=== PATIENT | female | born 1935 | race Caucasian/White ===

== ENCOUNTER 2019-10-19 10:23 | Emergency (ER) | payer BC, SELFPAY ==
--- NOTE | ~2019-10-19 | XR_ITS ---
XR ankle RT min 3V DATE: 10/19/2019 11:04 INDICATION: Right ankle pain following a fall. Laceration, swelling at dorsal aspect on the right TECHNIQUE: 4 views COMPARISON: None FINDINGS: No fracture or dislocation of the ankle or disruption of the ankle mortise is evident. No p eriosteal reaction or bone destruction. IMPRESSION: No fracture or dislocation detected Reviewed, dictated and finalized at location A.
--- NOTE | ~2019-10-19 | XR_ITS ---
XR foot RT min 3V DATE: 10/19/2019 11:04 INDICATION: Injury, pain TECHNIQUE: 4 views COMPARISON: None FINDINGS: No fracture or dislocation, periosteal reaction or bone destruction. IMPRESSION: No fracture or dislocation Reviewed, dictated and finalized at location A. IMPRESSION: No fracture or dislocation
[2019-10-19 10:28] VITALS: BP 213/82; PULSE 92; RESP 20; TEMP 36.8; O2SAT 96
--- NOTE | 2019-10-19 10:44 | ED.FALL ---
HPI - Fall General Chief Complaint: Fall Stated Complaint: FALL DOWN STEPS Time Seen by Provider: 10/19/19 10:29 History of Present Illness HPI Narrative: Patient is an 84-year-old female who presents ER with right foot pain. Patient was walking down some steps last night when she slipped and began to fall. She grabbed a handrail to brace herself. She still scraped her right foot and left calf on the stairs as she fell. She has been able to ambulate although more gingerly than typical especially on the right side. She did not strike her head or lose consciousness. She is not on blood thinners. Related Data Allergies Allergy/AdvReac Type Severity Reaction Status Date / Time Iodinated Contrast Media Allergy Unknown N/V WITH Verified 10/19/19 10:33 SHELLFISH iodine Allergy Unknown Unknown Verified 10/19/19 10:33 Penicillins Allergy Unknown Unknown Verified 10/19/19 10:33 shellfish derived Allergy Unknown N/V Verified 10/19/19 10:33 Review of Systems Review of Systems: All systems reviewed & are unremarkable except as noted in HPI and below Musculoskeletal: Comments: Right midfoot pain with bruising. Integumentary/Breasts: Comments: Abrasions to the left calf and the dorsal aspect of the right foot. Neurologic: Denies syncope, Denies focal weakness and Denies numbness PMFSH Social History Social History Smoking status: Never smoker Second hand tobacco smoke exposure: No Smoking end date: 06/30/15 Alcohol intake: current Substance use: never Substance use type: does not use Gender identity (if verbalized by the patient): Female Exam Narrative: Exam Narrative: GENERAL: Well-appearing, well-nourished, and in no acute distress. HEAD: Normocephalic, atraumatic. ENT: Mucous membranes moist. CHEST: Clear to auscultation. No respiratory distress. HEART: Regular rate and rhythm. Normal peripheral pulses. EXTREMITIES: Normal range of motion. No edema. Superficial abrasion dorsal aspect of the right foot extending to the langley. There is tenderness of the midfoot on the right mild discomfort along the first metatarsal as well. Ankle with mild lateral malleoli or discomfort without evidence of trauma. No tenderness left lower extremity. SKIN: Warm, dry, skin tear lateral left calf. NEURO: No focal deficits. Alert and oriented x3. Course Course Emergency Course: Will place in a postop shoe on the right side for comfort. Patient has a walker that she is ambulating with. Will give pain medication for home. Follow-up with PCP for further treatment evaluation. Vital Signs Vital signs: Vital Signs Temperature 98.3 F 10/19/19 10:28 Pulse Rate 92 10/19/19 10:28 Respiratory Rate 10/19/19 10:28 Blood Pressure 213/82 H 10/19/19 10:28 Pulse Oximetry 96 10/19/19 10:28 Temperature 98.3 F 10/19/19 10:28 Pulse Rate 68 10/19/19 11:38 Respiratory Rate 10/19/19 11:38 Blood Pressure 179/69 H 10/19/19 11:38 Pulse Oximetry 96 10/19/19 10:28 Discharge Plan Discharge Clinical Impression: Contusion of foot, right, Abrasion, multiple sites Patient Disposition: Home, Self-Care Condition: Stable Instructions: Contusion in Adults (ED) Additional Instructions: Return the ER if you have new injury, you have chest pain or shortness of breath, you cannot keep down food or water, you have additional concerns. Prescriptions: New hydrocodone-acetaminophen 5-325 mg tablet 1 tablet PO Q6H PRN (Reason: pain) Qty: 20 RF: 0 No Action levothyroxine [Levo-T] 50 mcg tablet 50 mcg PO .Alternating Qty: 45 RF: 1 levothyroxine [Levo-T] 75 mcg tablet 75 mcg PO .Alternating Qty: 45 RF: 1 Follow-up/Referrals: Pennie Turcios MD [Primary Care Provider] -
[2019-10-19 11:38] VITALS: BP 179/69; PULSE 68; RESP 20
== END 2019-10-19 12:30 | disposition home or self-care (01) ==
PROVIDERS: Emergency Provider Emergency Medicine; PCP Family Medicine
DX: S90.31XA Contusion of right foot, initial encounter (principal); S80.811A Abrasion, right lower leg, initial encounter; W10.9XXA Fall (on) (from) unspecified stairs and steps, initial encounter
CPT/HCPCS: 73610; 73630; 99283

== ENCOUNTER 2020-07-12 10:16 | Outpatient (CLI) | payer BC, SELFPAY ==
[2020-07-12 10:58] LABS: Basophils Percent Auto 0.7 % (0.2-1.2); Eosinophils Absolute Auto 0.1 K/mm3 (0-0.3); Eosinophils Percent Auto 0.9 % (0-4.4); Hematocrit 40.3 % (37.0-47.0); Hemoglobin 13.3 g/dL (12.0-15.0); Immature Granulocyte Absolute 0.02 K/mm3 (0.00-0.031); Immature Granulocyte Percent A 0.4 % (0-0.5); Lymphocytes Absolute Auto 1.28 K/mm3 (0.9-3.2); Lymphocytes Percent Auto 22.5 % (18.3-44.2); Mean Corpuscular Hemoglobin 29.2 pg (26-34); Mean Corpuscular Volume 88.6 fl (80-100); Mean Platelet Volume 10.3 fl (7.4-10.4); Monocytes Absolute Auto 0.5 K/mm3 (0.1-0.6); Monocytes Percent Auto 8.6 % (2.6-8.5); Neutrophils Absolute Auto 3.8 K/mm3 (1.3-6.7); Neutrophils Percent Auto 66.9 % (45.5-73.1); Platelet Count Result 263 k/mm3 (150-375); Red Blood Count 4.55 M/mm3 (4.2-5.4); Red Cell Distribution Width 14.6 % (11.5-14.5); White Blood Count 5.7 K/mm3 (4.5-10.0)
[2020-07-12 11:48] LABS: Free T4 Free Thyroxine 0.87 ng/mL (0.78-2.19)
[2020-07-12 11:49] LABS: Alanine Aminotransferase 19 U/L (4-35); Albumin Level 4.5 g/dL (3.5-5.1); Alkaline Phosphatase 59 U/L (38-126); Anion Gap 9 mmol/L (8-16); Aspartate Amino Transferase 31 U/L (14-36); Bilirubin,Total 0.3 mg/dL (0.2-1.3); Blood Urea Nitrogen 20 mg/dL (7-17); Calcium 9.8 mg/dL (8.4-10.2); Carbon Dioxide 26 mmol/L (22-30); Chloride 106 mmol/L (98-107); Estimated Glomerular Filt Rate > 60; Glucose 132 mg/dL (65-105); Potassium 4.5 mmol/L (3.4-5.0); Sodium 141 mmol/L (137-145)
[2020-07-12 12:19] LABS: Total Triiodothyronine (T3) 0.92 NG/ML (0.97-1.69)
[2020-07-15 13:01] LABS: Vitamin D 1,25 (OH)2 Total 70 pg/mL (18-72); Vitamin D2 1,25 (OH)2 <8 pg/mL; Vitamin D3 1,25 (OH)2 70 pg/mL
== END 2020-07-12 10:17 | disposition home or self-care (01) ==
LOC: ANHLAB 10:18
PROVIDERS: PCP Family Medicine; Visit Provider Family Medicine
DX: E03.9 Hypothyroidism, unspecified (principal); E55.9 Vitamin D deficiency, unspecified; I10 Essential (primary) hypertension
CPT/HCPCS: 36415; 80053; 82652; 84439; 84443; 84480; 85025

== ENCOUNTER 2021-02-11 16:37 | Inpatient (IN) | payer MEDICARE, BC, SELFPAY ==
[2021-02-11] VITALS (7 sets, daily range): BP systolic 107–143; BP diastolic 47–67; PULSE 106–111; RESP 18–38; TEMP 39.7; O2SAT 92–100
--- NOTE | ~2021-02-11 | XR_ITS ---
XR chest ET placement 02/12/2021 09:31 Indication: Dyspnea. Procedure: AP portable chest Comparison: Comparison to multiple prior studies sequentially, with oldest reviewed study dated 12/25. Findings: Developing patchy bilateral airspace disease, most confluent throughout the right lung, com patible with pneumonia versus asymmetric edema. Endotracheal tube tip 4.2 cm above the zak. NG tub e in the cysts. Impression: 1: Bilateral airspace disease, most likely pneumonia. Edema less favored. Reviewed, dictated and finalized at location A. Impression: 1: Bilateral airspace disease, most likely pneumonia. Edema less favored.
--- NOTE | ~2021-02-11 | CT_ITS ---
EXAMINATION: CT abdomen pelvis wo con DATE: 02/11/2021 19:49 INDICATION: Abdominal pain, vomiting and diarrhea TECHNIQUE: Computed tomography (CT) of the abdomen and pelvis was performed without intravenous contr ast. Automated exposure control and iterative reconstruction technique were employed. The dose-length product was 193.84 mGy-cm. COMPARISON: None FINDINGS: Minimal bibasilar atelectasis. Visualized inferior aspect of the heart is unremarkable. No pericardia l or pleural effusion. Liver, gallbladder, spleen, right adrenal gland and bilateral kidneys are norm al. There is some stranding in the left upper quadrant around the left adrenal gland, the margins of which are somewhat obscured. Stranding extends to the tail of the otherwise normal pancreas. Large am ount of stool at the rectum with smaller amounts throughout the more proximal colon. No dilated bowel to suggest obstruction. Bladder is normal. Multiple calcified uterine fibroids. No free intraperiton eal gas or fluid. No pathologically enlarged abdominal or pelvic lymphadenopathy. Mild lumbar levosco liosis with moderate to severe spondylosis. IMPRESSION: 1. Nonspecific mild stranding in the left upper quadrants centered around the left adrenal gland and along the tail of the pancreas. Differential would include and. Renal infection or congestion precedi ng adrenal hemorrhage or less likely acute interstitial pancreatitis. Correlate with amylase and lipa se levels. 2. Fibroid uterus. Reviewed, dictated and finalized at location A. IMPRESSION: 1. Nonspecific mild stranding in the left upper quadrants centered around the l eft adrenal gland and along the tail of the pancreas. Differential would includ e and. Renal infection or congestion preceding adrenal hemorrhage or less likel y acute interstitial pancreatitis. Correlate with amylase and lipase levels. 2. Fibroid uterus.
--- NOTE | ~2021-02-11 | XR_ITS ---
EXAMINATION: XR abdomen NG/feed tube insert DATE: 02/12/2021 09:31 INDICATION: Orogastric tube placement. TECHNIQUE: A supine view of the abdomen was obtained. COMPARISON: CT abdomen and pelvis 02/11/2021 FINDINGS: There is a dilated loop of small bowel in left abdomen. The colon is decompressed. The naso gastric tube tip is in the stomach. IMPRESSION: 1. Dilated small bowel in left abdomen, likely adynamic ileus. Reviewed, dictated and finalized at location B.
--- NOTE | ~2021-02-11 | CT_ITS ---
EXAMINATION: CT diagnostic chest wo con DATE: 02/12/2021 11:19 INDICATION: Blood with intubation. Respiratory distress. TECHNIQUE: Computed tomography (CT) of the chest was performed without intravenous contrast. The dose -length product was 157.08 mGy-cm. Automated exposure control and iterative reconstruction technique were employed. COMPARISON: Chest x-ray dated 02/12/2021 FINDINGS: Endotracheal tube tip 3.8 cm above the zak. Extensive patchy bilateral airspace consolid ation, most confluent in the right upper lobe, compatible with pneumonia. Probable small effusions. H eart size normal. NG tube in the stomach. There is gas in the IVC and left hepatic lobe, possibly fro m recent injection. IMPRESSION: 1. Extensive patchy bilateral airspace disease, consistent with pneumonia. 2: Possible small effusions. 3: Gas in the IVC of the upper abdomen and left hepatic lobe, possibly from recent injection. Reviewed, dictated and finalized at location A. IMPRESSION: 1. Extensive patchy bilateral airspace disease, consistent with pneumonia. 2: Possible small effusions. 3: Gas in the IVC of the upper abdomen and left hepatic lobe, possibly from rec ent injection.
--- NOTE | ~2021-02-11 | CT_ITS ---
EXAMINATION: CT brain wo con DATE: 02/12/2021 11:19 INDICATION: Slurred speech TECHNIQUE: Computed tomography (CT) of the head was performed without intravenous contrast. The dose- length product was 605.33 mGy-cm. Automated exposure control and iterative reconstruction technique w ere employed. COMPARISON: None FINDINGS: There is a left parietal subdural hemorrhage measuring approximately 6 mm. No significant m idline shift. No ventriculomegaly. Mild generalized atrophy. There are scattered mild periventricular and subcortical white matter changes, most likely related to small vessel ischemic disease (microang iopathy). Basilar cisterns are patent. Mild right maxillary and sphenoid sinus disease. Mastoids are pneumatized. No depressed skull fractures. IMPRESSION: 1. Left parietal subdural hemorrhage with mild mass effect. No midline shift. Dr. Elijah Ybarra discussed with Dr. Zane Eid MD at 02/12/2021 11:26 CDT. Reviewed, dictated and finalized at location A.
--- NOTE | ~2021-02-11 | XR_ITS ---
EXAMINATION: XR chest 1V portable DATE: 02/11/2021 17:03 INDICATION: Fever and weakness TECHNIQUE: frontal view of the chest was obtained. COMPARISON: Chest radiograph dated 01/14/2017 FINDINGS: The lungs are hyperexpanded but clear with no focal airspace opacities, pulmonary edema, pleural effu manjit or pneumothorax. The cardiomediastinal silhouette is normal. Mild upper thoracic levoscoliosis. Interval lower cervical spinal fusion with anterior plate and screw fixation. IMPRESSION: 1. Chronic hyperexpansion of lungs. No acute cardiopulmonary disease. Reviewed, dictated and finalized at location A.
--- NOTE | 2021-02-11 16:54 | ECG_ITS ---
Measurements Intervals [place] Rate: 102 P: 82 WV: 143 QRS: 118 QRSD: 94 T: 78 QT: 338 QTc: 442 Interpretive Statements SINUS TACHYCARDIA BORDERLINE ST ABNORMALITY- INF/LAT LEADS BASELINE ARTIFACT- II, III, AVR, AVF, V2-V6 BORDERLINE ECG Electronically Signed On 02-11-2021 17:48:36 CDT by Mariano Montes D.O.
[2021-02-11 17:08] LABS: Alveolar/Arterial O2 Gradient 75.1 mmHg; Base Excess ABG -0.8 mEq/l (+/-2.0); Carboxyhemoglobin 0.3 % THb (0-2.0); Fractional Inspired Oxygen 28 %; HCO3 ABG 21.7 mEq/l (22.0-26.0); Methemoglobin ABG 0.3 %THb (0-1.5); Modified Allen's Test Pass; Oxygen Content ABG 16.4 %vol (16.0-22.0); Oxygen Saturation ABG 97.5 % (95.0-100.0); Oxyhemoglobin 95.9 % THb (90.0-100.0); PCO2 ABG 29.5 mmHg (35.0-45.0); PO2 ABG 89.7 mmHg (80.0-100.0); Reduced Hemoglobin 3.5 %THb (0-5.0); Site Drawn LEFT RADIAL; Total Hemoglobin 12.1 g/dL (12.0-18.0); pH ABG 7.485 (7.350-7.450)
[2021-02-11 17:09] LABS: Device NASAL CANNULA
[2021-02-11 17:54] LABS: Hematocrit 35.2 % (37.0-47.0); Hemoglobin 11.5 g/dL (12.0-15.0); Mean Corpuscular HGB Conc 32.7 g/dl (32-36); Mean Corpuscular Hemoglobin 28.6 pg (26-34); Mean Corpuscular Volume 87.6 fl (80-100); Mean Platelet Volume 9.6 fl (7.4-10.4); Platelet Count Result 160 k/mm3 (150-375); Red Blood Count 4.02 M/mm3 (4.2-5.4); Red Cell Distribution Width 14.5 % (11.5-14.5)
[2021-02-11 18:04] LABS: INR 1.2; Prothrombin Time 14.6 Seconds (11.1-14.7)
[2021-02-11 18:05] LABS: Partial Thromboplastin Time 33.7 SECONDS (22.3-36.8)
[2021-02-11 18:08] LABS: Alanine Aminotransferase 21 U/L (4-35); Albumin Level 4.2 g/dL (3.5-5.1); Alkaline Phosphatase 79 U/L (38-126); Anion Gap 6 mmol/L (8-16); Aspartate Amino Transferase 40 U/L (14-36); Bilirubin,Total 0.6 mg/dL (0.2-1.3); Blood Urea Nitrogen 19 mg/dL (7-17); Calcium 9.1 mg/dL (8.4-10.2); Carbon Dioxide 22 mmol/L (22-30); Chloride 102 mmol/L (98-107); Estimated CRCL calculation 50 ml/min; Estimated Glomerular Filt Rate > 60; Glucose 115 mg/dL (65-110); Potassium 3.4 mmol/L (3.4-5.0); Sodium 130 mmol/L (137-145)
[2021-02-11 18:20] LABS: White Blood Count 1.6 K/mm3 (4.5-10.0)
[2021-02-11 18:27] LABS: Band Neutrophils Percent 38 % (0-6); Lymphocytes Absolute Manual 0.09 K/mm3 (1.1-4.5); Monocytes Absolute Manual 0.09 K/mm3 (0.1-0.90); Monocytes Percent Manual 6 % (3-9); Neutrophils Percent Manual 50 % (46-73); Platelet Estimate Adequate (Adequate); Total Cells Counted 50
[2021-02-11 18:39] LABS: CRP 13.7 mg/dL (<1.0)
--- NOTE | 2021-02-11 19:30 | PC.NURSE ---
pt states she isnt able to urinate at this time, refused straight cath.
--- NOTE | 2021-02-11 19:37 | ED.GENADULT ---
HPI - General Adult General Chief complaint: Fever Stated complaint: fever,weakness Time Seen by Provider: 02/11/21 19:12 History of Present Illness HPI narrative: Patient 85-year-old female presents emergency department with complaint of generalized weakness. The patient reports that she is been having vomiting and diarrhea for the last several days reports the last episode was about 2 days ago but states that since then she has been feeling very weak and very rundown. Patient states that she has had some subjective fevers at home but has not actually measured the temperature patient states that today she is having difficulty getting up and walking around. Patient states she had no appetite and has not eaten or drink anything today. Patient denies any localizing pain. Related Data Allergies Allergy/AdvReac Type Severity Reaction Status Date / Time Penicillins Allergy Mild Rash Verified 07/11/20 10:11 shellfish derived Allergy Mild N/V Verified 07/11/20 10:11 Iodinated Contrast Media Allergy Unknown N/V WITH Verified 07/11/20 10:11 SHELLFISH iodine Allergy Unknown Unknown Verified 07/11/20 10:11 Review of Systems Review of Systems: A 10 system review of systems was completed on the patient and is negative except for what is stated in the HPI. Nursing and ancillary documentation was reviewed. 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 Substance use: never Substance use type: does not use Gender identity (if verbalized by the patient): Female Exam Narrative: GENERAL: Well-appearing, well-nourished, and in no acute distress. HEAD: Normocephalic, atraumatic. EYES: PERRLA and EOMI. ENT: Nares clear, no rhinorrhea or epistaxis. Mucous membranes moist. NECK: Supple. CHEST: Clear to auscultation. No respiratory distress. HEART: Regular rate and rhythm. No murmur heard. Normal peripheral pulses. ABDOMEN: Soft, nontender, nondistended, normal active bowel sounds. EXTREMITIES: Normal range of motion. No edema. SKIN: Warm, dry, no rash. NEURO: No focal deficits. Alert and oriented x3. PSYCH: Normal mood and affect. Course Vital Signs Vital signs: Vital Signs Temperature 39.7 C H 02/11/21 16:38 Pulse Rate 111 H 02/11/21 16:38 Respiratory Rate 18 02/11/21 16:38 Blood Pressure 124/47 L 02/11/21 16:38 Pulse Oximetry 95 02/11/21 16:38 Temperature 39.7 C H 02/11/21 16:38 Pulse Rate 106 H 02/11/21 21:48 Respiratory Rate 25 H 02/11/21 21:48 Blood Pressure 134/58 L 02/11/21 21:48 Pulse Oximetry 98 02/11/21 21:48 Medical Decision Making Vital Signs Vital Signs: Vital Signs Temperature 39.7 C H 02/11/21 16:38 Pulse Rate 111 H 02/11/21 16:38 Respiratory Rate 18 02/11/21 16:38 Blood Pressure 124/47 L 02/11/21 16:38 Pulse Oximetry 95 02/11/21 16:38 Temperature 39.7 C H 02/11/21 16:38 Pulse Rate 106 H 02/11/21 21:48 Respiratory Rate 25 H 02/11/21 21:48 Blood
--- NOTE | 2021-02-11 19:40 | PC.NURSE ---
Care of pt assumed at this time. Pt to CT scan.
[2021-02-11] MEDS: ONDANSETRON INJ 4 MG/2 ML VIAL IV PUSH (20:13)
[2021-02-11] MEDS: SODIUM CHLORIDE 0.9% IV 1,000 ML 999 ML IV CONT ×2 (20:14→22:59)
--- NOTE | 2021-02-11 20:17 | PC.NURSE ---
pt states she still isnt able to urinate at this time. fluids started at this time.
--- NOTE | 2021-02-11 20:57 | PC.NURSE ---
pt still stating she isnt able to urinate at this time. refusing straight cath. pt educated on reasoning for urine. she states i need some water. this rn informed pt she isnt able to have any water at this time.
[2021-02-11 21:24] LABS: Troponin I 0.036 ng/mL (0.000-0.034)
[2021-02-11 21:31] LABS: Amylase 45 U/L (30-110); Lipase 48 U/L (23-300)
[2021-02-11 21:59] LABS: Add Urine Microscopic? YES; Appearance Urine Cloudy (Clear); Bacteria Urine Trace /hpf; Bilirubin Urine Negative (Negative); Blood Urine 2+ (Negative); Color Urine Amber (Yellow); Glucose Urine UA Negative (Negative); Ketones Urine Negative (Negative); Leukocyte Esterase Ur Negative LEU/UL (Negative); Nitrate Urine Negative (Negative); Protein Urine 2+ mg/dL (Negative); RBC Urine 0-2 /hpf (0-2); Specific Grav Ur 1.017 (1.001-1.035); Squamous Epithelial Cell Urine Rare /hpf (Few); Urobilinogen Urine Negative mg/dL (<2.0); WBC Urine 0-3 /hpf
[2021-02-11] MEDS: ACETAMINOPHEN 325 MG TABLET 650 MG PO (23:08)
--- NOTE | 2021-02-11 23:10 | PC.NURSE ---
this rn attempted to call geetha () to update him on pt. 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
--- NOTE | 2021-02-11 23:39 | PM.IMHP ---
H&P: HPI History of Present Illness Date/Time: 02/11/21 23:39 Chief Complaint: Generalized weakness Narrative: Patient is a 85-year-old female who presents to the emergency department with complaint of generalized weakness. She reports she was having couple of episode of vomiting before yesterday and also lose stool twice that day. She has been extremely exhausted since then and has not been able to eat or drink. She also reports subjective fever at home but has not actually measured the temperature. She has been feeling so weak that she has not been able to get up and move around. She has lost appetite and has not eaten or drunk since Friday. She was noted to be febrile here. She denies any shortness of breath or cough or chest pain. No urinary complaints. She is noted to have leukopenia of 1.6 on room ED evaluation, hyponatremia, mild anemia and mildly elevated troponin. Her CRP is elevated at 13.7 lactic acid borderline at 2.0 her urine is negative for any infection however does show some protein urea. It is noted to be tachycardic on arrival. Her chest x-ray did not show any acute cardiopulmonary disease. On abdominal CT scan was done which showed nonspecific mild stranding in the left upper quadrant centered around the left adrenal gland and along the tail of the pancreas differential would include then infection or congestion preceding adrenal hemorrhages or less likely acute interstitial pancreatitis. Amylase and lipase was checked and was normal limit. See a record a temperature of 103? in the ER. She is admitted for further evaluation management Review of Systems Review of Systems: - CONSTITUTIONAL: Denies weight loss, reports fever and chills. - HEENT: Denies changes in vision and hearing - RESPIRATORY: Denies SOB and cough. - CV: Denies palpitations and CP. - GI: Denies abdominal pain, he reports nausea, vomiting and diarrhea. Reports loss of appetite - : Denies dysuria and urinary frequency. - MSK: Reports myalgia and joint pain. Reports generalized weakness - SKIN: Denies rash and pruritus. - NEUROLOGICAL: Denies headache and syncope. - PSYCHIATRIC: Denies recent changes in mood. Denies anxiety and depression. 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 Substance use: never Substance use type: does not use Gender identity (if verbalized by the patient): Female Meds Home Medications and Allergies Home Medications Medication Instructions Recorded Confirmed Type amlodipine 2.5 mg-benazepril 10 mg 1 cap PO DAILY #30 cap 11/04/20 Rx capsule levothyroxine 50 mcg tablet 50 mcg PO .Alternating #45 tablet 01/03/21 Rx levothyroxine 75 mcg tablet 75 mcg PO .Alternating #45 tabl
[2021-02-11 23:46] LABS: Troponin I 0.061 ng/mL (0.000-0.034)
[2021-02-12] VITALS (33 sets, daily range): BP systolic 60–162; BP diastolic 41–94; PULSE 72–130; RESP 18–24; TEMP 33.5–38.7; O2SAT 90–100
[2021-02-12] MEDS: SODIUM CHLORIDE 0.9% IV 1,000 ML 999 ML IV CONT ×2 (00:17→09:45)
[2021-02-12 00:46] LABS: Estimated CRCL calculation 38 ml/min; Estimated Glomerular Filt Rate > 60
[2021-02-12] MEDS: SODIUM CHLORIDE 0.9% IV 1,000 ML 150 ML IV CONT ×2 (01:38→08:25)
--- NOTE | 2021-02-12 03:41 | ADMGEN ---
This patient, Antonia Sahu, was admitted to IMU Room 232-01 at 0330. Patient/family oriented to hospital policies and general routines including ID bracelet, bed and alarms, visiting hours, pain management, procedures, bathroom and other care routines, personal items, smoking policy, room service/diet, and visiting hours. Information on how to activate the Rapid Response Team has been discussed. Patient/Family are encouraged to report perceived risks to care and to ask questions if they do not understand what they are told or what they should do.
[2021-02-12] MEDS: ACETAMINOPHEN 325 MG TABLET 650 MG PO (05:42)
[2021-02-12] MEDS: VANCOMYCIN ORAL 125 MG/2.5 ML SYRUP PO ×2 (05:42→14:01)
[2021-02-12 06:18] LABS: Troponin I 0.246 ng/mL (0.000-0.034)
--- NOTE | 2021-02-12 06:34 | PC.NURSE ---
called for update on . nurse was in another patients room at time. attempted to call back a couple times. on number left by spouse and on number on file.
[2021-02-12] MEDS: ENOXAPARIN 60 MG/0.6 ML SYRINGE 50 MG SUB-Q (06:48)
[2021-02-12] MEDS: ASPIRIN 81 MG CHEWABLE TABLET 324 MG PO (06:49)
--- NOTE | 2021-02-12 06:59 | PC.NURSE ---
patient is c/o pain in rae legs. dr goldberg was made aware of this earlier when patient had some diarrhea. he stated that he didn't want to give any meds at this time.
--- NOTE | 2021-02-12 07:24 | PM.IMPN ---
Progress Note: A&P Assessment and Plan (1) Acute febrile illness: Code(s): R50.9 - Fever, unspecified Status: Acute Assessment and Plan: Multiple etiology with aspiration pneumonitis and possible COVID 19 infection. Continue empiric antibiotics for now. (2) Pulmonary nodules: Code(s): R91.8 - Other nonspecific abnormal finding of lung field Status: Acute Assessment and Plan: Outpatient workup. (3) Benign essential HTN: Code(s): I10 - Essential (primary) hypertension Status: Acute Assessment and Plan: Hold antihypertensive medication. (4) Hypothyroidism determined by thyroid function test: Code(s): E03.9 - Hypothyroidism, unspecified; R94.6 - Abnormal results of thyroid function studies Status: Acute Assessment and Plan: Continue levothyroxine. (5) Septic shock: Code(s): A41.9 - Sepsis, unspecified organism; R65.21 - Severe sepsis with septic shock Status: Acute Assessment and Plan: Empiric antibiotics with vancomycin, cefepime and Flagyl. She is requiring pressors with Levophed and vasopressin. She has received 3 L of fluid last night and 2 L today. She will be on stress dose steroid. Monitor hemodynamics closely. (6) Acute respiratory failure: Code(s): J96.00 - Acute respiratory failure, unspecified whether with hypoxia or hypercapnia Status: Acute Assessment and Plan: Continue mechanical ventilation at current settings. Wean FiO2 and PEEP if tolerated. Monitor chest x-ray and ABG. [facility] network protocol will be followed. Sedatives as per ICU service. (7) SDH (subdural hematoma): Code(s): S06.5X9A - Traumatic subdural hemorrhage with loss of consciousness of unspecified duration, initial encounter Status: Acute Assessment and Plan: CT scan showed left parietal subdural hematoma with mass effect but no midline shift at this time. She need to be transferred to a tertiary care facility for neurosurgery evaluation. Multiple facilities has been called around but there was no ICU bed available at this time. (8) Upper GI bleed: Code(s): K92.2 - Gastrointestinal hemorrhage, unspecified Status: Acute Assessment and Plan: She has active ongoing bleeding. I will recommend IV Protonix drip. She was on Lovenox for elevated troponin which was stopped. She was given protamine for reversal. She will be given 2 units of PRBC now. Continue to monitor H&H. Transfuse PRBC if indicated. Gastroenterology consult has been requested. She currently has OG tube which is under suction. (9) Aspiration pneumonia: Code(s): J69.0 - Pneumonitis due to inhalation of food and vomit Status: Acute Assessment and Plan: She might have aspirated blood as well as vomitus. She is on vancomycin, cefepime and Flagyl. Follow cultures. Additional Plan Patient family was updated. She has been told about the poor prognosis. Multiple facilities including [facility], [facility] and [facility] transfer center has been called. They do not have ICU beds. She is on waiting list and will be transferred as soon as a bed in the ICU is offered by any of these systems. Full code Subjective Date/time seen: 02/12/21 07:24 I was called at the bedside by the nurse with mental status change. Initial concern was a stroke because of acute mental status change. She was moving all her extremities. There was difficulty achieving good oxygen saturation waveform with probe on fingers and air lobes. While I was evaluated the patient she became bradycardic to the 20s and 30s. She did not have pulse and code blue was called. She was given 2 doses of epi and bicarb. ROCS was achieved after 6 minutes. Post resuscitation she remained tachycardic to 110s and 120s. Patient was intubated by ICU service with some difficulty because of difficult airway and ongoing bleeding. She was having
[2021-02-12] MEDS: DEXTROSE 50% 25 GM/50 ML SYRINGE (09:45)
[2021-02-12 09:46] LABS: Glucose Point of Care < 20 mg/dl (65-105)
[2021-02-12 09:46] LABS: Glucose Point of Care < 20 mg/dl (65-105)
[2021-02-12] MEDS: NOREPINEPHRINE 8 MG/D5W 250 ML 8 MG/250 ML BAG 56.25 MG IV CONT ×2 (10:30→14:16)
[2021-02-12] MEDS: DEXTROSE 5%/0.9% SOD CHL 1,000 ML 100 ML IV CONT (10:35)
[2021-02-12] MEDS: metroNIDAZOLE 500 MG/ISO 100ML 500 MG/100 ML BAG 100 MG IVPB (10:41)
[2021-02-12 11:00] LABS: Albumin Level 1.7 g/dL (3.5-5.1); Alkaline Phosphatase 64 U/L (38-126); Anion Gap 14 mmol/L (8-16); Aspartate Amino Transferase 532 U/L (14-36); Bilirubin,Total 2.5 mg/dL (0.2-1.3); Blood Urea Nitrogen 26 mg/dL (7-17); Carbon Dioxide 9 mmol/L (22-30); Chloride 107 mmol/L (98-107); Glucose 416 mg/dL (65-110); Lipase 119 U/L (23-300); Magnesium 2.2 mg/dL (1.6-2.3); Phosphorus 12.1 mg/dL (2.5-4.5); Potassium 5.7 mmol/L (3.4-5.0); Sodium 130 mmol/L (137-145)
[2021-02-12 11:08] LABS: Alanine Aminotransferase 307 U/L (4-35); Estimated CRCL calculation 14 ml/min; Estimated Glomerular Filt Rate 22
[2021-02-12 11:21] LABS: Lactic Acid Reflex 15.9 mmol/L (0.7-2.1)
[2021-02-12] MEDS: SODIUM BICARBONATE 8.4% 50 MEQ/50 ML SYRINGE 100 MEQ IV PUSH (11:45)
[2021-02-12] MEDS: SODIUM CHLORIDE 0.9% IV 500 ML IV CONT (11:46)
[2021-02-12 11:52] LABS: Basophils Percent Auto 0.4 % (0.2-1.2); Eosinophils Percent Auto 1.3 % (0-4.4); Hematocrit 23.1 % (37.0-47.0); Immature Granulocyte Absolute 0.03 K/mm3 (0.00-0.031); Immature Granulocyte Percent A 1.3 % (0-0.5); Lymphocytes Absolute Auto 0.37 K/mm3 (0.9-3.2); Lymphocytes Percent Auto 15.7 % (18.3-44.2); Mean Corpuscular HGB Conc 28.6 g/dl (32-36); Mean Corpuscular Hemoglobin 28.8 pg (26-34); Mean Corpuscular Volume 100.9 fl (80-100); Mean Platelet Volume 10.7 fl (7.4-10.4); Monocytes Absolute Auto 0.1 K/mm3 (0.1-0.6); Monocytes Percent Auto 3.4 % (2.6-8.5); Neutrophils Absolute Auto 1.8 K/mm3 (1.3-6.7); Neutrophils Percent Auto 77.9 % (45.5-73.1); Nucleated Red Blood Cells Perc 1.7 % (0.0-0.2); Red Blood Count 2.29 M/mm3 (4.2-5.4); Red Cell Distribution Width 15.8 % (11.5-14.5); White Blood Count 2.4 K/mm3 (4.5-10.0)
[2021-02-12 11:55] LABS: Hemoglobin 6.6 g/dL (12.0-15.0); Platelet Count Result 15 k/mm3 (150-375)
[2021-02-12 11:56] LABS: Platelet Estimate Decreased (Adequate)
[2021-02-12 11:57] LABS: Acanthocytes 1+ (NORMAL); Anisocytosis 1+ (NORMAL); Ovalocytes 1+ (NORMAL); Poikilocytosis 1+ (NORMAL)
--- NOTE | 2021-02-12 12:11 | PDCODEBLUE ---
Code Blue Note Code Blue Note Time Arrived at Code Blue: 0845 Initial Rhythm on Arrival: PEA Airway Management: Initiated bagging pt on arrival Chest Compressions: In process on arrival to bedside Result of Code Blue: Pt transferred to ICU Cardiac Rhythm Post Code: Sinus tach Code Blue Summary: 85-year-old female who was admitted last night with sepsis. She also had non STEMI and was started on anticoagulation. This morning as per her nurse she had mental status changes and they were suspecting patient was having a stroke. Soon patient became unresponsive and nurse could not feel pulses. On my arrival CPR was being done. Dr. Olmos was at bedside and running the code. he later left I took over management. I after obtaining limited information from the nurse prepared for intubation. patient was given 2 doses of epi, bicarb, dextrose before ROSC. Patient appeared to be having active upper GI bleed. patient was intubated with great difficulty. Please effort to intubation note for details. post intubation chest x-ray was done and OG was placed. patient was then transferred to ICU while bag ventilation was done. patient was in sinus tach and had pulse at that time Total Critical Care Time - 30 minutes Due to a high probability of clinically significant, life threatening deterioration, the patient required my highest level of preparedness to intervene emergently and I personally spent this critical care time directly and personally managing the patient. This critical care time included obtaining a history; examining the patient; pulse oximetry; ordering and review of studies; arranging urgent treatment with development of a management plan; evaluation of patient's response to treatment; frequent reassessment; and discussions with other providers. It was exclusive of separately billable procedures and treating other patients and teaching time. Please see Assessment and Plan section and the rest of the note for further information on patient assessment and treatment
--- NOTE | 2021-02-12 12:15 | WPDPROCEDUR ---
Procedures Intubation Intubation Date: 02/12/21 Intubation Time: 09:00 Consent: Patient was intubated during a cardiac arrest and code blue A pre-procedural Time-Out was completed immediately before starting the procedure and confirmed: Patient Identification, Site, Procedure, Patient Position and the Availability of Requisite Equipment: No Sedative: etomidate Mg given: 20 Laryngoscope: fiber optic video scope Assist device used: fiber optic device ET tube size: 7 Tube secured depth (cm): 25 Tube secured location: lips Tube placement confirmation: visualized tube passing through cords, equal breath sounds bilaterally and confirmation by capnometry Patient tolerated procedure: other Intubation complications: difficult intubation Additional comments: when I open patient's mouth for intubation patient had large amount of bright red blood in her posterior pharynx. I try to suction and clear the area and with laryngoscope was unable to get any decent view. Despite suction fresh blood was coming out of the esophagus. I requested glide scope. patient was given 20 mg etomidate. despite glide scope I was unable to see vocal cord as there was large amount of blood in the view. Again blood was suction. Patient was intubated but on 1st attempt it was esophageal intubation. Initially there was a color change on capnometer but it went away pretty quickly. ETT was removed and patient was bagged again. Patient was again suction thoroughly to clear the view. On 2nd attempt, I used required pressure and was able to see bottom of the cords which was very anterior. I bent the stylet to more acute angle to target the trachea. On 2nd attempt I was able to advance the ETT into her trachea and visualized balloon passing through the cords. ET tube was then confirmed with capnometer and chest x-ray. patient had equal breath sounds and no sounds on epigastrium.
--- NOTE | 2021-02-12 12:21 | WPDPROCEDUR ---
Procedures Central Line Placement Right Femoral: Central Line Date: 02/12/21 Central Line Time: 10:00 Performed Emergently - Given emergent patient condition, temporal constraints may have precluded informed consent.: Yes Consent: Patient had cardiac arrest and was in sh shock with GI bleed. only small peripheral IV and unable to draw blood. He did done as medical necessity. femoral site chosen as patient was anticoagulated Time Out Performed: Yes Patient Position: supine Patient placed on monitor/pulse ox: Yes Provider Prep: mask, sterile gown, sterile gloves, Max. sterile barrier precautions, cap and hand hygiene with conventional soap/water or alcohol based hand rub Central line prep: 2% Chlorhexidine scrub Sterile US Technique with sterile gel/sterile probe covers: Yes Central line lumen inserted: triple Length (cm): 16 Depth of Insertion (cm): 16 Post Procedure: sutured in place, good blood return, all ports aspirated, flushed, capped, transparent dressing, hemostatic product, antimicrobial product and aseptic technique maintained throughout procedure Patient tolerated procedure: well Complications: none
--- NOTE | 2021-02-12 12:23 | WPDCNINT ---
Assessment and Plan Assessment and plan (1) Septic shock: Code(s): A41.9 - Sepsis, unspecified organism; R65.21 - Severe sepsis with septic shock Status: Acute Assessment and Plan: multifactorial shock with sepsis and GI bleed UA was negative, sputum and blood culture empiric vancomycin cefepime and Flagyl Levophed vasopressin and epinephrine infusion patient received 3 L of fluids last night and 2 L this morning continue IV fluids with bicarb and dextrose central venous catheter was placed emergently transfuse PRBC monitor lactic hydrocortisone 25% albumin (2) SDH (subdural hematoma): Code(s): S06.5X9A - Traumatic subdural hemorrhage with loss of consciousness of unspecified duration, initial encounter Status: Acute Assessment and Plan: CT shows left parietal subdural hematoma. mass-effect present but no midline shift at this time neurochecks q.2 hours transfer to tertiary facility for neurosurgical evaluation when possible (3) Upper GI bleed: Code(s): K92.2 - Gastrointestinal hemorrhage, unspecified Status: Acute Assessment and Plan: patient had massive upper GI bleed IV PPI q.12 hours Lovenox was reversed with protamine q.4 hemoglobin transfuse 2 units packed red cell and additional 2 units on hold GI consult OG tube in place (4) Aspiration pneumonia: Code(s): J69.0 - Pneumonitis due to inhalation of food and vomit Status: Acute Assessment and Plan: patient likely inhaled large amount of blood from her GI bleed she is already on cefepime and I will add Flagyl (5) Acute respiratory failure: Code(s): J96.00 - Acute respiratory failure, unspecified whether with hypoxia or hypercapnia Status: Acute Assessment and Plan: patient intubated emergently during cardiac arrest chest x-ray and CT scan reviewed ABG pending (6) Thrombocytopenia: Code(s): D69.6 - Thrombocytopenia, unspecified Status: Acute Assessment and Plan: transfuse 2 units of platelets monitor (7) Suspected COVID-19 virus infection: Code(s): Z20.822 - Contact with and (suspected) exposure to COVID-19 Status: Acute Assessment and Plan: COVID-19 suspected. SARS-CoV-2 PCR sent and results pending Patient is in Airborne, Droplet and Contact Isolation Additional Plan DVT prophylaxis - SCDs Stress ulcer prophylaxis - PPI Nutrition - NPO Code Status - Full Code I spoke to patient's daughter Nevin who is patient's POA and also a RN. I updated her with events of this morning, current status including multiorgan failure respiratory, septic shock, VONDA, GI bleed, and parietal subdural hematoma. I explained patient's guarded prognosis and the fact that we do not have Neurology or Neurosurgery at this time in this hospital. She requested patient to be transferred to a tertiary facility. I have called transfer lines of [facility], [facility] and [facility] and provided patient's information to all 3 system for transfer to a facility with Neurosurgery and medical critical care. None on the system have any ICU beds available at this time due to COVID pandemic. Patient is on wait list. I have also requested Radiology to send the images for other facilities to review. Total Critical Care Time - 120 minutes This is excluding the procedures and earlier critical care time spent during the time of Code Due to a high probability of clinically significant, life threatening deterioration, the patient required my highest level of preparedness to intervene emergently and I personally spent this critical care time directly and personally managing the patient. This critical care time included obtaining a history; examining the patient; pulse oximetry; ordering and review of studies; arranging urgent treatment with development of a management plan; evaluation of patient's response to treatment; frequent reassessment; and discussions with
[2021-02-12] MEDS: DEXTROSE 50% 25 GM/50 ML SYRINGE IV PUSH (12:35)
[2021-02-12] MEDS: CALCIUM CHLOR 1,000MG/100ML NS 1,000 MG/100 ML BAG 100 MG IVPB (12:35)
[2021-02-12] MEDS: ALBUMIN HUMAN 25% 25 GM/100 ML 100 ML IVPB (12:38)
[2021-02-12] MEDS: VASOPRESSIN INJ 100 UNITS in DEXTROSE 5% 95 ML IV CONT (12:39)
[2021-02-12 12:53] LABS: INR 7.3; Partial Thromboplastin Time 193.1 SECONDS (22.3-36.8)
[2021-02-12 12:58] LABS: Glucose Point of Care < 20 mg/dl (65-105)
[2021-02-12 12:58] LABS: Glucose Point of Care < 20 mg/dl (65-105)
[2021-02-12 12:58] LABS: Glucose Point of Care < 20 mg/dl (65-105)
[2021-02-12 12:58] LABS: Glucose Point of Care > 500 mg/dl (65-105)
[2021-02-12 12:58] LABS: Glucose Point of Care < 20 mg/dl (65-105)
[2021-02-12 12:58] LABS: Glucose Point of Care 20 mg/dl (65-105)
[2021-02-12] MEDS: ATROPINE SULFATE 1 MG/10 ML SYRINGE (13:12)
[2021-02-12 13:27] LABS: Reflex Lactic Acid Yes or No Add Lactic
[2021-02-12] MEDS: EPINEPHrine INJ 4 MG in DEXTROSE 5% IN WATER 250 ML 3.81 MG IV CONT (13:49)
[2021-02-12] MEDS: HYDROCORTISONE SODIUM SUCCINATE 100 MG/2 ML VIAL IV PUSH (13:56)
[2021-02-12] MEDS: INSULIN HUMAN REGULAR (*BKC) 100 UNITS/ML 10 UNITS IV PUSH (13:56)
[2021-02-12 14:07] LABS: Alveolar/Arterial O2 Gradient 621.2 mmHg; Base Excess ABG -17.7 mEq/l (+/-2.0); Fractional Inspired Oxygen 100 %; HCO3 ABG 10.4 mEq/l (22.0-26.0); Oxygen Content ABG 5.4 %vol (16.0-22.0); Oxyhemoglobin 79.2 % THb (90.0-100.0); PCO2 ABG 35.6 mmHg (35.0-45.0); PO2 ABG 56.2 mmHg (80.0-100.0); PO2 FiO2 Ratio Arterial Blood 0.56 %
[2021-02-12] MEDS: SODIUM BICARBONATE 8.4% 150 MEQ in DEXTROSE 5% 1,000 ML 950 ML 50 MEQ IV CONT (14:07)
[2021-02-12 14:08] LABS: Oxygen Saturation ABG 77.5 % (95.0-100.0); pH ABG 7.085 (7.350-7.450)
[2021-02-12 14:09] LABS: Device VENTILATOR; Site Drawn ARTLINE; Total Hemoglobin 4.7 g/dL (12.0-18.0)
[2021-02-12] MEDS: CENTRAL LINE FLUSH 10 ML IV PUSH (14:09)
[2021-02-12 14:10] LABS: Arterial Blood Gas PEEP 8 cmH2O; Arterial Blood Gas Tidal Volume 350 ml; Arterial Blood Gas Vent Mode CMV; Arterial Blood Gas Ventilator rate 18 /MIN
--- NOTE | 2021-02-12 14:10 | PDCODEBLUE ---
Code Blue Note Code Blue Note Time Arrived at Code Blue: 1345 Initial Rhythm on Arrival: PEA Airway Management: Initiated bagging pt on arrival Chest Compressions: Initiated upon arrival Cardiac Rhythm Post Code: PEA Code Blue Summary: Patient had a PEA early this morning. she was now in ICU is septic shock multiorgan failure. patient again went into PEA arrest. CPR was initiated. patient received 4 dose of epinephrine, 2 amps of bicarb, 1 g of calcium, and dextrose before ROSC. code lasted approximately 10 minutes. patient in sinus tach post code
[2021-02-12] MEDS: SODIUM CHLORIDE 0.9% IV 250 ML 30 ML IV CONT ×2 (14:12→14:30)
--- NOTE | 2021-02-12 14:18 | WPDPROCEDUR ---
Procedures Arterial Line Arterial Line Date: 02/12/21 Arterial Line Time: 13:45 Discussed with the patient/family/POA, the placement of an arterial catheter, including its clinical necessity/indication and associated potential risks, benefits and alternatives.: Yes Patient/family/POA and/or understands and acknowledges the need to proceed with the arterial catheter insertion as an important element of the patient's clinical management.: Yes Perfomed Emergently - Given emergent patient conditions, temporal constraints may have precluded informed consent: Yes Time Out Performed: Yes Patient Position: supine Site: left Site Prep: chlorhexidine Technique used: guide wire technique Length: 12 cm Closure/Dressing: suture and transparent dressing Patient tolerated procedure: well Complications: other Additional comments: patient had lot of calcification in her artery. on first 2 attempts I was unable to advance guidewire to a sufficient depth. I was able to advance guidewire on 3rd attempt and able to place arterial line with good waveform. Patient had coded earlier and and was on multiple vasopressors. her pulse was thready and noninvasive blood pressure monitoring was inaccurate. RTs were unable to draw ABG. procedure was done emergently to monitor blood pressure accurately
--- NOTE | 2021-02-12 14:21 | PM.EVENT ---
Event Note Event Note Event Note: I met with patient's and daughter in presence of cutting and creasing press operator Terry to discuss medical decisions and level of care regarding patient's current condition. patient's daughter is a nurse and I updated them with patient's current condition, treatment plan, guarded prognosis and different potential outcomes. The family has decided, in accordance with patient's wishes, to continue medical therapy but do not resuscitate pt in case of cardiac arrest. I have made pt DNR in chart. I also spoke to Dr. Brumfield with Neurosurgery from [facility] [place]. We went over patient's current condition and case and CT findings. he told me the patient's subdural hematoma was not big enough at this point for needing surgery. We also agree that patient is too unstable to transfer this point due to her recent cardiac arrest, shock and coagulopathic. He said he will review CT images will call back if there is any change in recommendation. We agreed to stabilize patient hemodynamically at this time, repeat head CT once patient is stable and if her subdural hematoma is bigger than I will contact them again for reevaluation. Total Additional Critical Care Time - 35 minutes Due to a high probability of clinically significant, life threatening deterioration, the patient required my highest level of preparedness to intervene emergently and I personally spent this critical care time directly and personally managing the patient. This critical care time included obtaining a history; examining the patient; pulse oximetry; ordering and review of studies; arranging urgent treatment with development of a management plan; evaluation of patient's response to treatment; frequent reassessment; and discussions with other providers. It was exclusive of separately billable procedures and treating other patients and teaching time. Please see Assessment and Plan section and the rest of the note for further information on patient assessment and treatment
[2021-02-12] MEDS: SODIUM BICARBONATE 8.4% 50 MEQ/50 ML SYRINGE 150 MEQ IV PUSH (14:41)
[2021-02-12 15:33] LABS: Hematocrit 23.9 % (37.0-47.0)
[2021-02-12 15:40] LABS: Hemoglobin 6.8 g/dL (12.0-15.0)
[2021-02-12 15:51] LABS: Lactic Acid > 24.0 mmol/L (0.7-2.1)
[2021-02-12 18:30] LABS: SARS-CoV-2 RNA PCR Negative
--- NOTE | 2021-02-16 15:15 | PM.TDS ---
Transfer Discharge Sum: Prov Provider Date of admission: 02/11/21 22:38 Primary care physician: Harika Bray MD Admitting clinician: Beau Grove MD Consults: 02/12/21 Consult to Physician Routine Comment: called office with consult information Consulting Provider: Huber Quiroz game author/MD group to consult: GI Reason for consultation: UGI Bleed Has provider been notified: Yes Critical care consultation Dr. Zane Eid DS: Admitting Diagnosis Admitting Diagnosis Acute febrile illness NSTEMI Sepsis Nausea vomiting diarrhea Hypertension Pulmonary nodules Cardiomegaly Hypothyroidism DS: Discharge Diagnosis Discharge Diagnosis (1) Acute febrile illness: Code(s): R50.9 - Fever, unspecified Status: Acute Assessment and Plan: Multiple etiology with aspiration pneumonitis and possible COVID 19 infection. She was on antibiotics. (2) Pulmonary nodules: Code(s): R91.8 - Other nonspecific abnormal finding of lung field Status: Acute Assessment and Plan: Outpatient workup planned if she survives this hospitalization. (3) Benign essential HTN: Code(s): I10 - Essential (primary) hypertension Status: Acute Assessment and Plan: Hold antihypertensive medication because of septic shock (4) Hypothyroidism determined by thyroid function test: Code(s): E03.9 - Hypothyroidism, unspecified; R94.6 - Abnormal results of thyroid function studies Status: Acute Assessment and Plan: Hold levothyroxine for now (5) Septic shock: Code(s): A41.9 - Sepsis, unspecified organism; R65.21 - Severe sepsis with septic shock Status: Acute Assessment and Plan: Empiric antibiotics with vancomycin, cefepime and Flagyl. She was requiring multiple pressors. She has received 3 L of fluid last night and 2 L today. She will be on stress dose steroid. Monitor hemodynamics closely. She had developed severe lactic acidosis. (6) Acute respiratory failure: Code(s): J96.00 - Acute respiratory failure, unspecified whether with hypoxia or hypercapnia Status: Acute Assessment and Plan: She was intubated with great difficulty because of difficult airway. She had significant aspiration of blood from the upper airway which was coming out from esophagus. Continue mechanical ventilation at current settings. Wean FiO2 and PEEP if tolerated. Monitor chest x-ray and ABG. [facility] network protocol will be followed. (7) SDH (subdural hematoma): Code(s): S06.5X9A - Traumatic subdural hemorrhage with loss of consciousness of unspecified duration, initial encounter Status: Acute Assessment and Plan: CT scan showed left parietal subdural hematoma with mass effect but no midline shift at this time. She need to be transferred to a tertiary care facility for neurosurgery evaluation. Multiple facilities has been called around but there was no ICU bed available at this time. (8) Upper GI bleed: Code(s): K92.2 - Gastrointestinal hemorrhage, unspecified Status: Acute Assessment and Plan: She has active ongoing bleeding. Protonix drip was started. She was on Lovenox for elevated troponin which was stopped. She was given protamine for reversal. She will be given 2 units of PRBC. Gastroenterology consult has been requested. She currently has OG tube which is under suction. (9) Aspiration pneumonia: Code(s): J69.0 - Pneumonitis due to inhalation of food and vomit Status: Acute Assessment and Plan: She might have aspirated blood as well as vomitus. She is on vancomycin, cefepime and Flagyl. (10) Cardiopulmonary arrest: Code(s): I46.9 - Cardiac arrest, cause unspecified Status: Acute Assessment and Plan: I was called at the bedside by the nurse at around 8:30 a.m. with mental status change. I did not s
== END 2021-02-12 16:32 | disposition expired | DRG 871 ==
LOC: ANHED 19:12 → ANHIMU 02-12 02:10 → ANHICU 02-12 09:21
PROVIDERS: Emergency Medicine; Internal Medicine; Admitting Provider Internal Medicine; Emergency Provider Emergency Medicine; PCP Family Medicine; Visit Provider Internal Medicine
DX: A41.9 Sepsis, unspecified organism (principal); J69.0 Pneumonitis due to inhalation of food and vomit; R65.21 Severe sepsis with septic shock; J18.9 Pneumonia, unspecified organism; I21.4 Non-ST elevation (NSTEMI) myocardial infarction; J96.00 Acute respiratory failure, unspecified whether with hypoxia or hypercapnia; I62.01 Nontraumatic acute subdural hemorrhage; K92.2 Gastrointestinal hemorrhage, unspecified; E87.1 Hypo-osmolality and hyponatremia; N17.9 Acute kidney failure, unspecified; D68.9 Coagulation defect, unspecified; Z20.822 Contact with and (suspected) exposure to COVID-19; I10 Essential (primary) hypertension; R91.8 Other nonspecific abnormal finding of lung field; E03.9 Hypothyroidism, unspecified; I51.7 Cardiomegaly; E16.2 Hypoglycemia, unspecified; I46.9 Cardiac arrest, cause unspecified; R00.0 Tachycardia, unspecified; H35.30 Unspecified macular degeneration; D64.9 Anemia, unspecified; Z87.891 Personal history of nicotine dependence; D69.6 Thrombocytopenia, unspecified; Z66 Do not resuscitate
CPT/HCPCS: 31500; 36415; 36430; 36600; 51701; 70450; 71045; 71250; 74176; 80053; 81001; 82150; 82375; 82565; 82805; 82948; 83050; 83605; 83690; 83735; 84100; 84484; 85014; 85018; 85025; 85610; 85730; 86140; 86850; 86900; 86901; 86920; 87040; 92950; 93005; 94002; 96361; 96374; 99285; A9270; C1751; C9803; J0171; J0461; J0692; J1650; J1720; J1815; J2405; J2720; J3370; J7030; J7040; J7042; J7050; J7060; J7070; P9016; P9017; P9034; P9047; U0003; U0005